=== PATIENT | female | born 1955 | race African-American/Black ===

== ENCOUNTER 2018-09-06 09:48 | Inpatient (IN) | payer BC ==
[~2018-09-06] VITALS: Ht 170.2 cm; Wt 99.8 kg
[2018-09-06] MEDS ORDERED: CLONIDINE 0.2MG TABLET PO ONE (11:00)
[2018-09-06 11:18] LABS: BASOPHILS % 1.2 % (0.0-2.0); EOSINOPHILS % 2.7 % (0.0-5.0); HEMATOCRIT. 35.3 % (36.0-48.0); HEMOGLOBIN. 11.6 g/dL (12.0-16.0); LYMPHOCYTES % 37.5 % (20.0-50.0); MEAN CORPUSCULAR HEMOGLOBIN 27.1 pg (28.0-32.0); MEAN CORPUSCULAR VOLUME 82.3 fL (81.0-99.0); MEAN PLATELET VOLUME 8.4 fl (7.4-10.4); MONOCYTES % 6.8 % (2.0-8.0); NEUTROPHILS % 51.8 % (40.0-76.0); PLATELET 360 x1000/uL (130-400); RED BLOOD CELL COUNT 4.28 mill/uL (4.2-5.4); RED CELL DISTRIBUTION WIDTH 18.6 % (11.6-14.6)
[2018-09-06 11:22] LABS: CHLORIDE 110 mEq/L (98-107)
[2018-09-06] MEDS ORDERED: SODIUM POLYSTYRENE SULFONATE 15 G/60 ML BOT PO NR (21:00)
[2018-09-06 22:00] VITALS: BP 184/97
[2018-09-06] MEDS ORDERED: IPRATROPIUM/ALBUTEROL 0.5-3(2.5)MG/3ML NEB INH PRN (22:30)
[2018-09-06] MEDS ORDERED: ACETAMINOPHEN 325MG TABLET PO PRN (22:30)
[2018-09-06] MEDS ORDERED: HYDROCODONE/ACETAMINOPHEN 5/325MG TABLET PO PRN (22:30)
[2018-09-06] MEDS ORDERED: DOCUSATE SODIUM 100MG CAPSULE PO PRN (22:30)
[2018-09-06] MEDS ORDERED: MAGNESIUM/ALUMINUM HYDROXIDE/SIMETHICONE 30ML UDC PO PRN (22:30)
[2018-09-06] MEDS ORDERED: ONDANSETRON HCL 4MG/2ML INJ IV PRN (22:30)
[2018-09-06] MEDS ORDERED: CLON-457 PO (23:16)
[2018-09-06] MEDS ORDERED: ALBU90AE INH (23:16)
[2018-09-06] MEDS ORDERED: ATOR20TA65 MT (23:16)
[2018-09-06] MEDS ORDERED: LISI-604 MT (23:16)
[2018-09-06] MEDS ORDERED: METO-385 MT (23:16)
[2018-09-06] MEDS ORDERED: AMLO10TA80 MT (23:16)
[2018-09-06] MEDS ORDERED: ASPI-1159 MT (23:16)
[2018-09-06] MEDS ORDERED: SERT100T MT (23:16)
[2018-09-06] MEDS: CLONIDINE 0.1MG TABLET PO PRN (23:20)
[2018-09-07 04:00] VITALS: BP 167/91
[2018-09-07 04:38] LABS: CLARITY URINE CLEAR (CLEAR); COLOR URINE YELLOW (YELLOW); KETONES URINE NEGATIVE (NEGATIVE); LEUKOCYTE ESTERASE URINE 2+ (NEGATIVE); NITRITE URINE NEGATIVE (NEGATIVE); OCCULT BLOOD URINE 2+ (NEGATIVE); PROTEIN URINE TRACE (NEGATIVE); SPECIFIC GRAVITY URINE 1.014 (1.005-1.030); UROBILINOGEN URINE 0.2 E.U./dL (0.2-1.0)
[2018-09-07 05:13] LABS: *AMPHETAMINES SCREEN URINE NEGATIVE (NEGATIVE)
[2018-09-07 05:14] LABS: *BARBITURATES SCREEN URINE NEGATIVE (NEGATIVE); *BENZODIAZEPINES SCREEN URINE NEGATIVE (NEGATIVE); *COCAINE SCREEN URINE NEGATIVE (NEGATIVE); CANNABINOID URINE SCREEN NEGATIVE (NEGATIVE); METHADONE URINE SCREEN NEGATIVE (NEGATIVE); OPIATES URINE SCREEN NEGATIVE (NEGATIVE); PHENCYCLIDINE URINE SCREEN NEGATIVE (NEGATIVE)
[2018-09-07 05:46] LABS: BASOPHILS % 0.5 % (0.0-2.0); EOSINOPHILS % 2.7 % (0.0-5.0); HEMOGLOBIN. 10.1 g/dL (12.0-16.0); LYMPHOCYTES % 40.3 % (20.0-50.0); MEAN CORPUSCULAR HEMOGLOBIN 27.8 pg (28.0-32.0); MEAN PLATELET VOLUME 8.4 fl (7.4-10.4); MONOCYTES % 7.1 % (2.0-8.0); NEUTROPHILS % 49.4 % (40.0-76.0); PLATELET 270 x1000/uL (130-400); RED BLOOD CELL COUNT 3.62 mill/uL (4.2-5.4)
[2018-09-07] MEDS: CLONIDINE 0.1MG TABLET PO PRN ×2 (06:05→20:45)
[2018-09-07 06:40] LABS: CHLORIDE 111 mEq/L (98-107)
[2018-09-07 06:53] LABS: LDL CHOLESTEROL 126 mg/dL (5-100)
[2018-09-07 06:55] LABS: CREATINE KINASE 71 IU/L (26-192); HDL CHOLESTEROL 40 mg/dL (40-59)
[2018-09-07 06:57] LABS: CREATINE KINASE MB FRACTION 1.1 ng/mL (0.5-3.6)
[2018-09-07 08:00] VITALS: BP 169/103
[2018-09-07] MEDS: ASPIRIN 81MG EC TABLET PO SCH (09:40)
[2018-09-07] MEDS: ENOXAPARIN 30MG/0.3ML SYR SUBCUT SCH ×2 (09:40→20:46)
[2018-09-07 10:39] VITALS: BP 151/76
[2018-09-07 12:00] VITALS: BP_SYST 170; BP_SYST 171; BP_DIAS 90
[2018-09-07] MEDS: LOSARTAN POTASSIUM 100 MG TABLET PO SCH (13:03)
[2018-09-07] MEDS: NEBIVOLOL HCL 5 MG TABLET PO SCH (13:03)
[2018-09-07] MEDS: AMLODIPINE 5MG TABLET PO SCH ×2 (13:04→20:45)
[2018-09-07] MEDS: CEFTRIAXONE 1 G PREMIX 50 ML IV SCH (13:05)
[2018-09-07 15:36] LABS: CREATINE KINASE 70 IU/L (26-192)
[2018-09-07 15:38] LABS: CREATINE KINASE MB FRACTION 1.1 ng/mL (0.5-3.6)
[2018-09-07 16:00] VITALS: BP 154/90
[2018-09-07 17:39] LABS: TOTAL IRON BINDING CAPACITY 274 ug/dL (250-450)
[2018-09-07 20:00] VITALS: BP 174/87
[2018-09-07] MEDS ORDERED: ATORVASTATIN CALCIUM 20MG TABLET PO SCH (21:00)
[2018-09-08] VITALS: BP 135/78
[2018-09-08 04:00] VITALS: BP 145/82
[2018-09-08 05:58] LABS: BASOPHILS % 0.3 % (0.0-2.0); EOSINOPHILS % 2.4 % (0.0-5.0); HEMATOCRIT. 31.1 % (36.0-48.0); HEMOGLOBIN. 10.3 g/dL (12.0-16.0); LYMPHOCYTES % 48.1 % (20.0-50.0); MEAN CORPUSCULAR HEMOGLOBIN 27.3 pg (28.0-32.0); MEAN CORPUSCULAR VOLUME 82.7 fL (81.0-99.0); MEAN PLATELET VOLUME 8.4 fl (7.4-10.4); MONOCYTES % 7.4 % (2.0-8.0); NEUTROPHILS % 41.8 % (40.0-76.0); PLATELET 271 x1000/uL (130-400); RED BLOOD CELL COUNT 3.76 mill/uL (4.2-5.4); RED CELL DISTRIBUTION WIDTH 18.3 % (11.6-14.6)
[2018-09-08 06:39] LABS: PHOSPHORUS 4.9 mg/dL (2.5-4.9)
[2018-09-08 07:55] VITALS: BP 142/80
[2018-09-08] MEDS: NEBIVOLOL HCL 5 MG TABLET PO SCH (08:33)
[2018-09-08] MEDS: LOSARTAN POTASSIUM 100 MG TABLET PO SCH (08:33)
[2018-09-08] MEDS: AMLODIPINE 5MG TABLET PO SCH (08:33)
[2018-09-08] MEDS: ASPIRIN 81MG EC TABLET PO SCH (08:33)
[2018-09-08] MEDS: ENOXAPARIN 30MG/0.3ML SYR SUBCUT SCH (08:53)
[2018-09-08] MEDS: CEFTRIAXONE 1 G PREMIX 50 ML IV SCH (11:06)
[2018-09-08 12:00] VITALS: BP 150/76
[2018-09-08 16:00] VITALS: BP 145/80
[2018-09-08 16:21] VITALS: BP 145/80
[2018-09-08] MEDS ORDERED: INSULIN LISPRO 100 UNITS/ML SUBCUT NR (18:15)
[2018-09-09 10:11] LABS: A/G RATIO 0.9 (0.7-1.7); ALPHA-1-GLOBULIN 0.2 g/dL (0.0-0.4); ALPHA-2-GLOBULIN 0.7 g/dL (0.4-1.0); BETA GLOBULIN 1.2 g/dL (0.7-1.3); GAMMA GLOBULINS 1.4 g/dL (0.4-1.8); GLOBULIN TOTAL 3.5 g/dL (2.2-3.9); M-SPIKE Not Observed g/dL (Not Observed); TOTAL PROTEIN SERUM 6.5 g/dL (6.0-8.5)
== END 2018-09-08 19:35 | disposition home or self-care (01) | DRG 305 ==
LOC: ER 10:13 → 8WST 15:19 → ENRESERV 19:58
PROVIDERS: ADMIT Internal Medicine; ATTEND Internal Medicine
DX: I16.1 Hypertensive emergency (principal); N17.9 Acute kidney failure, unspecified; N39.0 Urinary tract infection, site not specified; E78.5 Hyperlipidemia, unspecified; R04.0 Epistaxis; N18.2 Chronic kidney disease, stage 2 (mild); F41.9 Anxiety disorder, unspecified; N61.0 Mastitis without abscess; E87.5 Hyperkalemia; I25.10 Atherosclerotic heart disease of native coronary artery without angina pectoris; D64.9 Anemia, unspecified; E11.65 Type 2 diabetes mellitus with hyperglycemia; I12.9 Hypertensive chronic kidney disease with stage 1 through stage 4 chronic kidney disease, or unspecified chronic kidney disease; E11.22 Type 2 diabetes mellitus with diabetic chronic kidney disease; I25.2 Old myocardial infarction; Z82.49 Family history of ischemic heart disease and other diseases of the circulatory system; Z91.14 Patient's other noncompliance with medication regimen; Z91.19 Patient's noncompliance with other medical treatment and regimen; Z79.84 Long term (current) use of oral hypoglycemic drugs
CPT/HCPCS: 36415; 71045; 80048; 80061; 80305; 82550; 82553; 82728; 83036; 83540; 83550; 83735; 83880; 84100; 84155; 84165; 84443; 84484; 93005; 93306; 93970; 99285; J0696; J1650; J7050